=== PATIENT | male | born 1950 | race Caucasian/White ===

== ENCOUNTER 2018-02-03 10:23 | Emergency (ER) | payer MEDICARE, OTHER ==
[2018-02-03] MEDS ORDERED: NS 0.9% 1000 ML* 1,000 ML IV ONE (10:26)
--- NOTE | 2018-02-03 10:43 | RAD ---
INDICATION: Acute neurologic changes COMPARISON: None. TECHNIQUE: Contiguous axial sections of the brain were obtained from the skull base to the vertex without contrast. FINDINGS: Image quality is limited by streak artifact from motion. The ventricles, cisterns and sulci are within normal limits. At the right caudate head nucleus there is a 4 mm focus of hypoattenuation which could be an age indeterminant lacunar infarction. Otherwise the figueroa-white matter differentiation is adequately maintained and there is no sulcal effacement. No significant focal abnormality or mass effect is present. There is no evidence for intracranial hemorrhage. No significant focal osseous abnormality is present. There is opacification of the visualized portion of the left axillary sinus and moderate mucosal thickening of the bilateral anterior ethmoid air cells. There is trace mastoid air cell effusion at the dependent-most mastoid air cells. IMPRESSION: 1. Evaluation is limited by motion streak artifact. 2 series of images were acquired both with varying degrees of streak artifact. 2. Age indeterminant 4 mm lacunar infarction at the right caudate head nucleus. 3. Otherwise no definite CT evidence of acute intracranial abnormality including acute intracranial bleed. 4. Paranasal sinus mucosal disease as described above and trace left mastoid air cell effusion. Findings as well as image quality limitations were discussed with Dr. Gordon at 1038 hours on February 03, 2018.
[2018-02-03] MEDS ORDERED: Iodixanol* (CONTRAST) 320 MG/ML 100 ML SDV IV ONE (10:44)
[2018-02-03 11:05] LABS: ABS Basophils 0.1 10^3/ul (0-0.2); ABS Eosinophils 0.3 10^3/ul (0-0.6); ABS Lymphocytes 1.8 10^3/ul (1.0-4.8); ABS Monocytes 0.7 10^3/ul (0-0.8); ABS Neutrophils 9.1 10^3/ul (1.5-7.7); ABS Nucleated RBC 0 10^3/ul; Eosinophil % 2.6 % (0-6); Hematocrit 40 % (42-52); Hemoglobin 12.7 g/dl (14.0-18.0); Lymphocyte % 14.9 % (25-47); Mean Corpuscular HGB Conc 31 g/dl (31-36); Mean Corpuscular Hemoglobin 26 pg (27-31); Mean Corpuscular Volume 81 fL (80-94); Nucleated Red Blood Cells % 0; Platelet Count 355 10^3/ul (150-450); Red Blood Count 4.95 10^6/ul (4.0-5.4); Red Cell Distribution Width 16 % (10.5-15); White Blood Count 11.9 10^3/ul (3.5-10.8)
[2018-02-03] MEDS ORDERED: Alteplase* 100 MG VIAL ONE (11:10)
[2018-02-03 11:13] LABS: INR 0.93 (0.77-1.02)
[2018-02-03] MEDS ORDERED: Alteplase* 100 MG VIAL IV ONE ×2 (11:15)
--- NOTE | 2018-02-03 11:19 | RAD ---
CPT II: CPT II Codes: 3100F INDICATION: Acute onset confusion COMPARISON: Same day noncontrast CT of the brain limited by motion artifact. TECHNIQUE: A CT angiogram of the head and neck was performed with 80 cc of Visipaque 320. Contiguous axial sections were obtained from the thoracic inlet through the [place]. Images were reconstructed in the sagittal, coronal planes and in a 3-D volume rendered format. The distal cervical internal carotid artery diameter is used as the denominater for stenosis measurement. CTA NECK: The common and internal carotid arteries are patent without hemodynamically significant stenosis. Right: Below the carotid bifurcation the common carotid artery measures 8 mm in short axis diameter. At the carotid bulb there is coarse calcification narrowing the lumen to 2 mm in diameter. This corresponds to at least 75% degree stenosis. Left: Below the carotid bifurcation the common carotid artery measures 6 mm in short axis diameter. There is coarse atherosclerotic calcification at the carotid bulb narrowing the lumen to less than 2 mm in diameter. This corresponds to at least 66% degree stenosis. The vertebral arteries are patent without gross abnormality. CTA of the brain: The internal carotid, anterior and middle cerebral arteries appear are patent without high grade stenosis or occlusion. There is a relative reduction in filling of the arteries along the distal lateral margin of the left frontal lobe relative to the right including the pericallosal branch arteries. The vertebral, basilar and posterior cerebral arteries appear patent without high grade stenosis or occlusion. The [place] of [place] is complete with bilateral posterior communicating arteries identified. No focal luminal filling defect, aneurysm or vascular malformation is seen. NON-ARTERIAL FINDINGS: There is complete opacification of the left maxillary sinus and left anterior ethmoid air cells. There is moderate mucosal thickening of the right anterior ethmoid air cells. There is partial opacification of the right sphenoid sinus. IMPRESSION: 1. DUE TO Coarsely calcified atherosclerosis of the bilateral carotid bulbs there is high-grade stenosis measuring approximately 75% on the right and 66% on the left. The coarse calcification somewhat obscures the image quality and correlation can be made to carotid duplex sonography if it will influence clinical management. 2. There is no large vessel filling defect of the arteries of the head or neck. There is relative reduction of filling overlying the region supplied by the left pericallosal artery in addition to overall decreased arterial filling overlying the left frontal lobe relative to the right. If there is clinical evidence of acute stroke objective evidence can be obtained with MRI of the brain.
[2018-02-03 11:25] LABS: EGFR Non-African American 104.9 (>60)
--- NOTE | 2018-02-03 12:42 | RAD ---
INDICATION: Acute neurologic changes COMPARISON: None. TECHNIQUE: Single AP portable view of the chest was obtained. FINDINGS: Image quality is compromised due to the relative inferiority of a portable chest x-ray. The heart and mediastinum exhibit normal size and contour. The lungs are grossly clear. A small degree of blunting at the left costophrenic angle could indicate small pleural effusion. Visualized bones are normal for the patient's age. IMPRESSION: A small amount of blunting of the left costophrenic angle could be seen due to small pleural effusion or dependent left lower lobe consolidation.
--- NOTE | 2018-02-03 13:10 | ED ---
Sun Tracey Emily, scribed for Petty Gordon MD on 02/03/18 at 1038 . Neurological HPI - HPI Summary HPI Summary: This patient is a 67 year old M BIBA presenting to [facility] with a chief complaint of R-sided weakness, slurred speech, confusion, right facial droop that began at 0845. The patient reports his last known well time of 0845am. Symptoms aggravated by nothing. Symptoms alleviated by nothing. Pt reports that he is not currently on blood thinners and states no other medications. Per EMS, the patient, feeling unwell, called his neighbors at 0845. His neighbors then called for EMS. Per EMS, the patient was sitting in a chair when the EMS arrived on scene. The patient reports that he fell today, and was unable to get back up. States he did not hit his head. Payton Agee called with ETA 5 mins prior to presentation to ED. Pt examined at charge desk on EMS stretcher and taken directly to CT for CT/CTA. Pt with chronic indwelling cali. Right nephrostomy tube noted later in ED course. Per nephrostomy placed for kidney stones at [facility] by Dr. Antonio Armenta approximately 2 months ago. Pt's is in [place] for rehab for cancer at [facility]. Blood pressure 178/87 HR 71 BPM O2 sat 100 Respiratory rate 23 - History of Current Complaint Stated Complaint: PAYTON AGEE Hx Obtained From: Patient, Family/Food Safety Scientist - , EMS Onset/Duration: Sudden Onset, Started hours ago, Still Present Timing: Constant Onset Severity: Severe Current Severity: Moderate Neurological Deficit Location: Facial - right facial droop, aphasia, RUE Character: Motor Weakness - right arm, Impaired Speech, Confusion, Other: - aphasia, dysarthria Aggravating: Nothing Alleviating: Nothing Associated Signs and Symptoms: Positive: Confusion, Impaired Speech TPA Considered: Yes - per consult Dr. Holman, TPA candidate, TPA given - Allergy/Home Medications Allergies/Adverse Reactions: Allergies Allergy/AdvReac Type Severity Reaction Status Date / Time No Known Allergies Allergy Verified 01/31/13 11:06 Home Medications: Home Medications NK [No Home Medications Reported] 02/03/18 [History Confirmed 02/03/18] PMH/Surg Hx/FS Hx/Imm Hx Previously Healthy: No - kidney stones with cali and nephrostomy tube Endocrine/Hematology History: Denies: Hx Anticoagulant Therapy, Hx Diabetes, Hx Thyroid Disease Cardiovascular History: Denies: Hx Hypertension, Hx Pacemaker/ICD Respiratory History: Denies: Hx Asthma, Hx Chronic Obstructive Pulmonary Disease (COPD) History: Reports: Hx Kidney Stones Denies: Hx Renal Disease Neurological History: Denies: Hx Seizures Psychiatric History: Denies: Hx Substance Abuse - Surgical History Surgery Procedure, Year, and Place: Nephrostomy, right, placed approx 2 months ago at [facility] per Hx Anesthesia Reactions: No Infectious Disease History: No Infectious Disease History: Denies: Hx Hepatitis, Hx Human Immunodeficiency Virus (HIV) - Family History Known Family History: Positive: Hypertension - Social History Occupation: Retired Lives: Alone - is in rehab for cancer in [facility] [place] Alcohol Use: None Hx Substance Use: No Substance Use Type: Reports: None Hx Tobacco Use: Yes - Unknown Smoking Status (MU): Never Smoked Tobacco Review of Systems Constitutional: Negative Eyes: Negative ENT: Negative Cardiovascular: Negative Respiratory: Negative Gastrointestinal: Negative Positive: other - cali and right nephrostomy Musculoskeletal: Negative Skin: Negative Neurological: Other - Positive confusion Positive: Weakness - R-sided, arm and right facial droop , Slurred Speech Psychological: Normal All Other Systems Reviewed And Are Negative: Yes Physical Exam - Summary Physical Exam Summary: Appearance: chronically ill appearing, no pain distress, obese, poor dentition Skin: Warm, color reflects adequate perfusion, dry Head: R facial droop, atraumatic Eyes: Conjunctiva clear, PERRL, EOMI, no nystagmus ENT: mucous membranes moist, poor dentition, multiple missing teeth Neck: Supple, no nodes, no JVD, no bruits Respiratory: Lungs clear, normal breath sounds, no respiratory distress Cardio: RRR, No murmur, pulses normal, brisk capillary refill Abdomen: Soft, nontender, indwelling cali with cloudy foul smelling urine, right nephrostomy with cloudy urine Bowel sounds: Present Musculoskeletal: no calf tenderness, no edema. Psychological: Normal Neuro: A&O x3, R facial droop, remaining cranial nerves intact, R arm weakness, sensation intact, ataxia R arm, GCS 14, NIH 5 Triage Information Reviewed: Yes Vital Signs On Initial Exam: Initial Vitals Temp Pulse Resp BP Pulse Ox 97.5 F 73 23 178/87 95 02/03/18 10:43 06/09/18 10:43 02/03/18 10:43 02/03/18 10:43 02/03/18 10:43 Vital Signs Reviewed: Yes - Ashley Coma Scale Best Eye Response: 4 - Spontaneous Best Motor Response: 6 - Obeys Commands Best Verbal Response: 4 - Confused Coma Scale Total: 14 Diagnostics - Vital Signs Vital Signs Temp Pulse Resp BP Pulse Ox 02/03/18 12:28 57 17 178/76 98 02/03/18 12:18 59 18 169/77 100 02/03/18 12:08 58 26 172/76 98 02/03/18 12:01 59 21 100 02/03/18 11:59 60 24 179/77 98 02/03/18 11:32 72 16 157/75 96 02/03/18 11:23 95 02/03/18 11:22 65 23 162/83 96 02/03/18 11:01 67 21 165/96 96 02/03/18 11:00 74 22 95 02/03/18 10:43 97.5 F 68 24 178/87 96 - Laboratory Lab Results: Lab Results 02/03/18 02/03/18 02/03/18 Range/Units 10:47 10:53 10:53 WBC 11.9 H (3.5-10.8) 10^3/ul RBC 4.95 (4.0-5.4) 10^6/ul Hgb 12.7 L (14.0-18.0) g/dl Hct 40 L (42-52) % MCV 81 (80-94) fL MCH 26 L (27-31) pg MCHC 31 (31-36) g/dl RDW 16 H (10.5-15) % Plt Count 355 (150-450) 10^3/ul MPV 7.0 L (7.4-10.4) um3 Neut % (Auto) 75.8 (38-83) % Lymph % (Auto) 14.9 L (25-47) % [place] % (Auto) 6.1 (0-7) % Eos % (Auto) 2.6 (0-6) % Baso % (Auto) 0.6 (0-2) % Absolute Neuts (auto) 9.1 H (1.5-7.7) 10^3/ul Absolute Lymphs (auto) 1.8 (1.0-4.8) 10^3/ul Absolute Monos (auto) 0.7 (0-0.8) 10^3/ul Absolute Eos (auto) 0.3 (0-0.6) 10^3/ul Absolute Basos (auto) 0.1 (0-0.2) 10^3/ul Absolute Nucleated RBC 0 10^3/ul Nucleated RBC % 0 INR (Anticoag Therapy) 0.93 (0.77-1.02) APTT 32.2 (26.0-36.3) seconds Sodium (139-145) mmol/L Potassium (3.5-5.0) mmol/L Chloride (101-111) mmol/L Carbon Dioxide (22-32) mmol/L Anion Gap (2-11) mmol/L BUN (6-24) mg/dL Creatinine (0.67-1.17) mg/dL Est GFR ( Amer) (>60) Est GFR (Non-Af Amer) (>60) BUN/Creatinine Ratio (8-20) Glucose (70-100) mg/dL Lactic Acid (0.5-2.0) mmol/L Calcium (8.6-10.3) mg/dL Total Bilirubin (0.2-1.0) mg/dL AST (13-39) U/L ALT (7-52) U/L Alkaline Phosphatase (34-104) U/L Troponin I (<0.04) ng/mL Total Protein (6.4-8.9) g/dL Albumin (3.2-5.2) g/dL Globulin (2-4) g/dL Albumin/Globulin Ratio (1-3) Triglycerides mg/dL Cholesterol mg/dL LDL Cholesterol mg/dL HDL Cholesterol mg/dL Blood Type A Negative Antibody Screen Negative 02/03/18 02/03/18 Range/Units 10:53 10:53 WBC (3.5-10.8) 10^3/ul RBC (4.0-5.4) 10^6/ul Hgb (14.0-18.0) g/dl Hct (42-52) % MCV (80-94) fL MCH (27-31) pg MCHC (31-36) g/dl RDW (10.5-15) % Plt Count (150-450) 10^3/ul MPV (7.4-10.4) um3 Neut % (Auto) (38-83) % Lymph % (Auto) (25-47) % [place] % (Auto) (0-7) % Eos % (Auto) (0-6) % Baso % (Auto) (0-2) % Absolute Neuts (auto) (1.5-7.7) 10^3/ul Absolute Lymphs (auto) (1.0-4.8) 10^3/ul Absolute Monos (auto) (0-0.8) 10^3/ul Absolute Eos (auto) (0-0.6) 10^3/ul Absolute Basos (auto) (0-0.2) 10^3/ul Absolute Nucleated RBC 10^3/ul Nucleated RBC % INR (Anticoag Therapy) (0.77-1.02) APTT (26.0-36.3) seconds Sodium 137 L (139-145) mmol/L Potassium 4.0 (3.5-5.0) mmol/L Chloride 103 (101-111) mmol/L Carbon Dioxide 26 (22-32) mmol/L Anion Gap 8 (2-11) mmol/L BUN 19 (6-24) mg/dL Creatinine 0.74 (0.67-1.17) mg/dL Est GFR ( Amer) 134.9 (>60) Est GFR (Non-Af Amer) 104.9 (>60) BUN/Creatinine Ratio 25.7 H (8-20) Glucose 96 (70-100) mg/dL Lactic Acid 2.1 H* (0.5-2.0) mmol/L Calcium 9.6 (8.6-10.3) mg/dL Total Bilirubin 0.40 (0.2-1.0) mg/dL AST 12 L (13-39) U/L ALT 9 (7-52) U/L Alkaline Phosphatase 75 (34-104) U/L Troponin I 0.00 (<0.04) ng/mL Total Protein 7.5 (6.4-8.9) g/dL Albumin 4.0 (3.2-5.2) g/dL Globulin 3.5 (2-4) g/dL Albumin/Globulin Ratio 1.1 (1-3) Triglycerides 184 mg/dL Cholesterol 194 mg/dL LDL Cholesterol 125 mg/dL HDL Cholesterol 32.3 mg/dL Blood Type Antibody Screen Result Diagrams: 02/03/18 10:53 02/03/18 10:53 Lab Statement: Any lab studies that have been ordered have been reviewed, and results considered in the medical decision making process. - Radiology CXR Radiology Interpretation Completed By: Radiologist - CXR reveals, per radiologist, A small amount of blunting of the left costophrenic angle could be seen due to small pleural effusion or dependent left lower lobe consolidation. ED physician has reviewed this radiology report. - CT Brain CT CT Interpretation Completed By: Radiologist - Brain CT reveals, per radiologist , 1. Evaluation is limited by motion streak artifact. 2 series of images were acquired both with varying degrees of streak artifact. 2. Age indeterminant 4 mm lacunar infarction at the right caudate head nucleus. 3. Otherwise no definite CT evidence of acute intracranial abnormality including acute intracranial bleed. 4. Paranasal sinus mucosal disease as described above and trace left mastoid air cell effusion. ED physician has reviewed this radiology report. CTA Head and Neck CT Interpretation Completed By: Radiologist - CTA head and neck reveals, per radiologist, 1. DUE TO Coarsely calcified atherosclerosis of the bilateral carotid bulbs there is high-grade stenosis measuring approximately 75% on the right and 66% on the left. The coarse calcification somewhat obscures the image quality and correlation can be made to carotid duplex sonography if it will influence clinical management. 2. There is no large vessel filling defect of the arteries of the head or neck. There is relative reduction of filling overlying the region supplied by the left pericallosal artery in addition to overall decreased arterial filling overlying the left frontal lobe relative to the right. If there is clinical evidence of acute stroke objective evidence can be obtained with MRI of the brain. ED physician has reviewed this radiology report. - EKG 1113 Cardiac Rate: NL EKG Rhythm: Sinus Rhythm - 64 BPM EKG Interpretation: 1st degree AV block. Nml IVCT. Nml QTc. Nml axis. No acute changes NIH Scale - NIH Scale Level of Consciousness: Alert/Keenly Responsive Ask Patient the Month and His/Her Age: Both Correct Ask Pt to Open/Close Eyes and Electric Serviceman/Release Non-Paretic Hand: Both Correctly Best Gaze (Only Horizontal Eye Movement): Normal Visual Field Testing: No Visual Loss Facial Paresis-Pt to Smile & Close Eyes or Grimace Symmetry: Minor Paralysis Motor Function - Right Arm: Drifts LT 10 seconds Motor Function - Left Arm: No Drift-Holds 10 Seconds Motor Function - Right Leg: No Drift-Holds 10 Seconds Motor Function - Left Leg: No Drift-Holds 10 Seconds Limb Ataxia-Must be out of Proportion to Weakness Present: Present in One Limb Sensory (Use Pinprick to Test Arms/Legs/Trunk/Face): Normal Best Language (Describe Picture, Name Items): Some Loss Dysarthria (Read Several Words): Slurs Some Words Extinction and Inattention: No Abnormality Total Score: 5 Re-Evaluation - Re-Evaluation First Eval Re-Evaluation Time: 12:00 Change: Unchanged Comment: speech improving, cali with hematuria Second Eval Re-Evaluation Time: 12:35 Change: Unchanged Comment: more blood from cali. nephrostomy with no blood, no definite drainage. [facility] Advised of pt's stroke and transfer to [facility]. Course/Dx - Course Course Of Treatment: This patient is a 67 year old M BIBA presenting to [facility] with a chief complaint of R-sided weakness that began at 0845. Pt has confusion and slurred speech. Pt reports that he fell today and was unable to get up. Consult with Dr. Holman (neurology) at 1036. Discussed the plan of care for the patient. Consult with Dr. Kidd (radiology) at 1038. CT results were communicated. Consult with Dr. Holman (neurology) at 1050. Tele-stroke consult initiated. Consult with Dr. Allan (neurology) at 1209. He recommends the patient be transferred to a higher level of care facility due to critical carotid stenosis . Brain CT reveals, per radiologist, 1. Evaluation is limited by motion streak artifact. 2 series of images were acquired both with varying degrees of streak artifact. 2. Age indeterminant 4 mm lacunar infarction at the right caudate head nucleus. CTA head and neck reveals, per radiologist, 1. DUE TO Coarsely calcified atherosclerosis of the bilateral carotid bulbs there is high-grade stenosis measuring approximately 75% on the right and 66% on the left. The coarse calcification somewhat obscures the image quality and correlation can be made to carotid duplex sonography if it will influence clinical management. 2. There is no large vessel filling defect of the arteries of the head or neck. There is relative reduction of filling overlying the region supplied by the left pericallosal artery in addition to overall decreased arterial filling overlying the left frontal lobe relative to the right. The patient will be transferred for further evaluation. The patient is agreeable with this plan. - Differential Dx Differential Diagnoses Neuro: Positive: Cerebrovascular Accident, Hemorrhage, Intracranial Bleed, Other - sepsis - Diagnoses Provider Diagnoses: Stroke, Received intravenous tissue plasminogen activator (tPA) in emergency department, Hematuria, gross, Carotid stenosis, bilateral During the Visit The Following Alert/Code Occurred: Code [place] - Called at 1018, 5 minutes PROJECT COORDINATOR - Physician Notifications Discussed Care Of Patient With: Arely Holman Time Discussed With Above Provider: 10:36 Instructed by Provider To: Transfer - Consult with Dr. Holman (neurology) at 1036. Discussed the plan of care for the patient. Consult with Dr. Kidd ( radiology) at 1038. CT results were communicated. Consult with Dr. Holman ( neurology) at 1050. Tele-stroke consult initiated. Consult with Dr. Ramirez ( marine electronics technician) at 1130. He communicated that this case can be discussed with the hospitalist. Consult with Dr. Cordon, hospitalist, who recommends consult with Dr. Vickers. Consult with Dr. Allan (neurology) at 1209. He recommends the patient be transferred to a higher level of care facility. - Critical Care Time Critical Care Time: 30-74 min - 60 minutes Discharge - Sign-Out/Discharge Documenting (check all that apply): Discharge/Admit/Transfer - Transfer - Discharge Plan Condition: Stable Disposition: TRANS HIGHER LVL OF CARE FAC Referrals: Suha Carroll [Primary Care Provider] - - Billing Disposition and Condition Condition: STABLE Disposition: Trans Higher Lvl of Care Fac The documentation as recorded by the Sun cedeño Emily accurately reflects the service I personally performed and the decisions made by , Petty Gordon MD.
[2018-02-03 13:42] VITALS: BP 164/68
== END 2018-02-03 13:57 | disposition short-term general hospital (02) ==
LOC: ED 10:23
DX: I63.9 Cerebral infarction, unspecified (principal); I65.23 Occlusion and stenosis of bilateral carotid arteries; R41.0 Disorientation, unspecified; R29.810 Facial weakness; R47.81 Slurred speech; G81.91 Hemiplegia, unspecified affecting right dominant side; R29.705 NIHSS score 5; R31.9 Hematuria, unspecified; N20.0 Calculus of kidney; Z93.6 Other artificial openings of urinary tract status
CPT/HCPCS: 36415; 70450; 70496; 70498; 71045; 80053; 80061; 83605; 84484; 85025; 85610; 85730; 86850; 86900; 86901; 93005; 96374; 99284; J2997; Q9967

== ENCOUNTER 2020-02-26 10:23 | Inpatient (IN) ==
[2020-02-26] MEDS ORDERED: NS 0.9% 1000 ml BAG 1,000 ML IV.FLUID IV ONE (10:34)
[2020-02-26] MEDS ORDERED: cefTRIAXone(*) 2 GM ADDV.VIAL 2 GM in NS 0.9% 100 ml BAG 100 ML IVPB ONE (10:42)
[2020-02-26] MEDS ORDERED: Vancomycin(*) 1,000 MG in NS 0.9% 250 ml 250 ML IVPB ONE (11:00)
[2020-02-26 11:11] LABS: ABS Lymphocytes 0.6 10^3/ul (1.0-4.8); ABS Monocytes 0.8 10^3/ul (0-0.8); Eosinophil % 0.1 %; Hematocrit 40 % (42-52); Hemoglobin 13.2 g/dL (14.0-18.0); Lymphocyte % 4.5 %; Mean Corpuscular HGB Conc 33 g/dL (31-36); Mean Corpuscular Hemoglobin 26 pg (27-31); Mean Corpuscular Volume 78 fL (80-94); Mean Platelet Volume 8.4 fL (7.4-10.4); Nucleated Red Blood Cells % 0.1; Platelet Count 396 10^3/uL (150-450); Red Blood Count 5.15 10^6 /uL (4.18-5.48); Red Cell Distribution Width 18 % (10-15)
[2020-02-26 11:25] LABS: Activated Partial Thrombo Time 28.8 seconds (26.0-38.0); INR 1.17 (0.82-1.09)
[2020-02-26 11:28] LABS: ALT 17 U/L (7-52); AST 21 U/L (13-39); Albumin 3.3 g/dL (3.2-5.2); Albumin/Globulin Ratio 0.7 (1-3); Alkaline Phosphatase 82 U/L (34-104); Anion Gap 13 mmol/L (2-11); BUN/Creatinine Ratio 32.5 (8-20); Blood Urea Nitrogen 40 mg/dL (6-24); C Reactive Protein 144.36 mg/L (<8.01); CO2 Carbon Dioxide 18 mmol/L (22-32); Calcium 9.4 mg/dL (8.6-10.3); Chloride 98 mmol/L (101-111); EGFR African American 70.2 (>60); Glucose 158 mg/dL (70-100); Potassium 4.3 mmol/L (3.5-5.0); Sodium 129 mmol/L (135-145); Total Protein 8.3 g/dL (6.4-8.9)
[2020-02-26 11:30] LABS: Troponin I 0.01 ng/mL (<0.03)
[2020-02-26] MEDS ORDERED: Vancomycin(*) 1,000 MG BAG/ADDV ONE (12:09)
[2020-02-26] MEDS ORDERED: cefTRIAXone(*) 2 GM ADDV.VIAL ONE (12:10)
[2020-02-26] MEDS ORDERED: Ondansetron 4 mg VIAL 2 MG/ML 2 ml VIAL IV PRN (12:36)
[2020-02-26 12:55] LABS: Erythrocyte Sed Rate 57 mm/Hr (0-19)
[2020-02-26] MEDS ORDERED: Vancomycin per Pharmacy 1 EA NOTE FOLLOW UP SCH (13:00)
[2020-02-26] MEDS ORDERED: Albuterol/Ipratropium NEB.SOL (2.5/0.5 MG) 3 ML NEB.SOLN INH PRN (13:06)
[2020-02-26 13:12] LABS: Cholesterol 134 mg/dL; HDL Cholesterol 28.3 mg/dL; LDL Cholesterol 85 mg/dL; Magnesium 2.1 mg/dL (1.9-2.7); Triglycerides 104 mg/dL
[2020-02-26 13:21] LABS: Total Iron Binding Capacity 241 mcg/dL (250-450); Transferrin 172 mg/dL (203-362)
[2020-02-26 13:35] LABS: TSH (Thyroid Stimulating Horm) 3.63 mcIU/mL (0.34-5.60)
[2020-02-26 13:41] LABS: Ferritin 91.9 ng/mL (24-336)
[2020-02-26] MEDS: NS 0.9% 1000 ml BAG 1,000 ML IV SCH ×2 (14:33→20:29)
[2020-02-26] MEDS: metroNIDAZOLE IV 500 MG/100ML 500 MG/100 ML BAG IVPB SCH ×2 (15:52→23:36)
[2020-02-26 16:09] LABS: Urine Appearance Turbid; Urine Bilirubin Negative (Negative); Urine Blood 2+ (Negative); Urine Color Amber; Urine Glucose Negative (Negative); Urine Ketones 1+ (Negative); Urine Nitrite Positive (Negative); Urine Protein 1+(30 mg/dL) (Negative); Urine Urobilinogen Negative (Negative)
[2020-02-26 16:13] LABS: Urine Bacteria 3+ (Absent); Urine Red Blood Cell 3+(>10/hpf) (Absent); Urine Red Blood Cell Casts Present (Absent); Urine White Blood Cell 3+(>20/hpf) (Absent)
[2020-02-26] MEDS ORDERED: ceFAZolin 2 GM PREMIX in ORs 2 GM/50 ML BAG ONE (16:26)
[2020-02-26] MEDS ORDERED: Naloxone 0.4 mg VIAL 0.4 mg/ml 1 ml VIAL IV PRN (16:39)
[2020-02-26] MEDS ORDERED: HYDROmorphone 1 MG/1 ML SYRINGE IV PRN (16:39)
[2020-02-26] MEDS ORDERED: fentaNYL 100 mcg/2 ml 50 MCG/ML VIAL ONE ×2 (17:12→17:27)
[2020-02-26] MEDS ORDERED: Ondansetron 4 mg VIAL 2 MG/ML 2 ml VIAL ONE (17:57)
[2020-02-26] MEDS ORDERED: Etomidate 20 mg/10 ml 2 MG/ML 10 ml VIAL ONE (17:58)
[2020-02-26] MEDS ORDERED: Dexamethasone IV 4 MG/ML VIAL 1 ml VIAL ONE (17:58)
[2020-02-26] MEDS ORDERED: Lidocaine 2% PF 5 ML VIAL ONE (17:58)
[2020-02-26] MEDS ORDERED: Propofol 10 MG/ML 20 ML BTL ONE (17:58)
[2020-02-26] MEDS ORDERED: Morphine 2 MG/ML SYRINGE IV PRN (20:06)
[2020-02-26] MEDS: Vancomycin(*) 1,250 MG IV Q12H IVPB SCH (22:16)
[2020-02-27] MEDS: metroNIDAZOLE IV 500 MG/100ML 500 MG/100 ML BAG IVPB SCH ×4 (00:13→17:12)
[2020-02-27 04:52] LABS: ABS Lymphocytes 0.8 10^3/ul (1.0-4.8); ABS Monocytes 0.7 10^3/ul (0-0.8); Eosinophil % 0.1 %; Hematocrit 33 % (42-52); Hemoglobin 10.6 g/dL (14.0-18.0); Lymphocyte % 6.9 %; Mean Corpuscular HGB Conc 32 g/dL (31-36); Mean Corpuscular Hemoglobin 26 pg (27-31); Mean Corpuscular Volume 79 fL (80-94); Platelet Count 322 10^3/uL (150-450); Red Blood Count 4.14 10^6 /uL (4.18-5.48); Red Cell Distribution Width 17 % (10-15); White Blood Count 11.4 10^3/uL (3.5-10.8)
[2020-02-27 05:06] LABS: Anion Gap 5 mmol/L (2-11); BUN/Creatinine Ratio 29.2 (8-20); Blood Urea Nitrogen 26 mg/dL (6-24); CO2 Carbon Dioxide 21 mmol/L (22-32); Calcium 8.1 mg/dL (8.6-10.3); Chloride 108 mmol/L (101-111); EGFR Non-African American 84.3 (>60); Glucose 120 mg/dL (70-100); Potassium 3.8 mmol/L (3.5-5.0); Sodium 134 mmol/L (135-145)
[2020-02-27] MEDS: Heparin 5000 UNITS/ML VIAL(*) 1 ml vial SUBCUT SCH ×2 (08:37→17:13)
[2020-02-27] MEDS: NS 0.9% 1000 ml BAG 1,000 ML IV SCH (09:13)
[2020-02-27] MEDS: Vancomycin(*) 1,250 MG IV Q12H IVPB SCH (10:09)
[2020-02-27] MEDS ORDERED: Dextrose 50% Syringe 50 ml 25 GM/50 ML SYRINGE IV PUSH PRN (10:40)
[2020-02-27] MEDS: cefTRIAXone(*) 2 GM ADDV.VIAL 2 GM in NS 0.9% 100 ml BAG 100 ML IV SCH (12:07)
[2020-02-27] MEDS: Insulin LISPRO 100 units/ml(*) SUBCUT SCH ×3 (12:11→21:31)
[2020-02-27] MEDS ORDERED: Iohexol 350 (CONTRAST) 500 ML MDV IV ONE (14:11)
[2020-02-27] MEDS ORDERED: LORazepam 1 mg TAB (*) PO SCH (16:15)
[2020-02-28] MEDS: metroNIDAZOLE IV 500 MG/100ML 500 MG/100 ML BAG IVPB SCH ×6 (00:15→20:47)
[2020-02-28] MEDS: Heparin 5000 UNITS/ML VIAL(*) 1 ml vial SUBCUT SCH ×3 (01:19→17:23)
[2020-02-28 05:27] LABS: ABS Basophils 0.1 10^3/ul (0-0.2); ABS Eosinophils 0.3 10^3/ul (0-0.6); ABS Lymphocytes 1.7 10^3/ul (1.0-4.8); ABS Monocytes 0.8 10^3/ul (0-0.8); Eosinophil % 2.7 %; Hematocrit 34 % (42-52); Hemoglobin 10.8 g/dL (14.0-18.0); Mean Corpuscular HGB Conc 32 g/dL (31-36); Mean Corpuscular Hemoglobin 26 pg (27-31); Mean Corpuscular Volume 80 fL (80-94); Mean Platelet Volume 7.8 fL (7.4-10.4); Nucleated Red Blood Cells % 0.1; Platelet Count 356 10^3/uL (150-450); Red Blood Count 4.23 10^6 /uL (4.18-5.48); Red Cell Distribution Width 18 % (10-15); White Blood Count 9.2 10^3/uL (3.5-10.8)
[2020-02-28 05:43] LABS: BUN/Creatinine Ratio 23.3 (8-20); C Reactive Protein 87.17 mg/L (<8.01); Calcium 8.3 mg/dL (8.6-10.3); EGFR African American 106.1 (>60); EGFR Non-African American 87.7 (>60); Potassium 3.9 mmol/L (3.5-5.0)
[2020-02-28] MEDS ORDERED: Lidocaine 1% VIAL 10 MG/ML VIAL ONE (08:21)
[2020-02-28] MEDS ORDERED: Iohexol 350 (CONTRAST) 200 ML MDV IV ONE ×2 (08:22)
[2020-02-28] MEDS ORDERED: Heparin 2 UNITS/ML 1000 mls 2,000 ML IV ONE (08:22)
[2020-02-28] MEDS ORDERED: fentaNYL 100 mcg/2 ml 50 MCG/ML VIAL ONE ×2 (08:44→09:18)
[2020-02-28] MEDS ORDERED: Midazolam 5 mg/5 ml VIAL 1 mg/ml 5 ml VIAL (5 mg) ONE (08:44)
[2020-02-28] MEDS ORDERED: Iodixanol 320 (CONTRAST) 100 ML SDV ONE (08:52)
[2020-02-28] MEDS ORDERED: Vancomycin Trough Check NOTE FOLLOW UP ONE (09:30)
[2020-02-28] MEDS ORDERED: Heparin 1,000 UNIT/ML CATH LAB 1,000 10 ml (10,000 UNITS) IV ONE (09:33)
[2020-02-28] MEDS ORDERED: Heparin 2 UNITS/ML 1000 mls 1,000 ML IV ONE (09:50)
[2020-02-28] MEDS: Insulin LISPRO 100 units/ml(*) SUBCUT SCH ×4 (11:41→20:43)
[2020-02-28] MEDS: cefTRIAXone(*) 2 GM ADDV.VIAL 2 GM in NS 0.9% 100 ml BAG 100 ML IV SCH (12:36)
[2020-02-29] MEDS: Heparin 5000 UNITS/ML VIAL(*) 1 ml vial SUBCUT SCH ×3 (01:37→16:58)
[2020-02-29] MEDS: metroNIDAZOLE IV 500 MG/100ML 500 MG/100 ML BAG IVPB SCH ×3 (04:22→21:12)
[2020-02-29 05:34] LABS: ABS Basophils 0.1 10^3/ul (0-0.2); ABS Eosinophils 0.3 10^3/ul (0-0.6); ABS Lymphocytes 2.1 10^3/ul (1.0-4.8); ABS Monocytes 0.8 10^3/ul (0-0.8); Eosinophil % 2.8 %; Hematocrit 33 % (42-52); Hemoglobin 10.9 g/dL (14.0-18.0); Lymphocyte % 21.6 %; Mean Corpuscular HGB Conc 33 g/dL (31-36); Mean Corpuscular Hemoglobin 26 pg (27-31); Mean Corpuscular Volume 79 fL (80-94); Platelet Count 340 10^3/uL (150-450); Red Blood Count 4.15 10^6 /uL (4.18-5.48); Red Cell Distribution Width 18 % (10-15); White Blood Count 9.9 10^3/uL (3.5-10.8)
[2020-02-29 05:47] LABS: BUN/Creatinine Ratio 15.7 (8-20); C Reactive Protein 57.59 mg/L (<8.01); Calcium 8.5 mg/dL (8.6-10.3); EGFR African American 134.5 (>60); EGFR Non-African American 111.2 (>60)
[2020-02-29] MEDS: Insulin LISPRO 100 units/ml(*) SUBCUT SCH ×4 (07:35→21:10)
[2020-02-29] MEDS: cefTRIAXone(*) 2 GM ADDV.VIAL 2 GM in NS 0.9% 100 ml BAG 100 ML IV SCH (12:15)
[2020-03-01] MEDS: Heparin 5000 UNITS/ML VIAL(*) 1 ml vial SUBCUT SCH ×3 (01:05→17:28)
[2020-03-01] MEDS: metroNIDAZOLE IV 500 MG/100ML 500 MG/100 ML BAG IVPB SCH ×3 (04:17→20:57)
[2020-03-01 06:28] LABS: ABS Basophils 0.1 10^3/ul (0-0.2); ABS Eosinophils 0.3 10^3/ul (0-0.6); ABS Lymphocytes 2.3 10^3/ul (1.0-4.8); ABS Monocytes 0.9 10^3/ul (0-0.8); Eosinophil % 3.4 %; Hematocrit 32 % (42-52); Hemoglobin 10.5 g/dL (14.0-18.0); Lymphocyte % 22.2 %; Mean Corpuscular HGB Conc 33 g/dL (31-36); Mean Corpuscular Hemoglobin 26 pg (27-31); Mean Corpuscular Volume 79 fL (80-94); Mean Platelet Volume 7.8 fL (7.4-10.4); Platelet Count 346 10^3/uL (150-450); Red Cell Distribution Width 18 % (10-15); White Blood Count 10.3 10^3/uL (3.5-10.8)
[2020-03-01 06:46] LABS: BUN/Creatinine Ratio 16.7 (8-20); C Reactive Protein 51.49 mg/L (<8.01); Calcium 8.4 mg/dL (8.6-10.3); Potassium 3.7 mmol/L (3.5-5.0)
[2020-03-01] MEDS: Insulin LISPRO 100 units/ml(*) SUBCUT SCH ×4 (07:27→20:59)
[2020-03-01] MEDS: Albuterol/Ipratropium NEB.SOL (2.5/0.5 MG) 3 ML NEB.SOLN INH SCH ×4 (11:39→23:10)
[2020-03-01] MEDS: cefTRIAXone(*) 2 GM ADDV.VIAL 2 GM in NS 0.9% 100 ml BAG 100 ML IV SCH (11:39)
[2020-03-02] MEDS: Heparin 5000 UNITS/ML VIAL(*) 1 ml vial SUBCUT SCH ×3 (00:19→17:39)
[2020-03-02] MEDS: Albuterol/Ipratropium NEB.SOL (2.5/0.5 MG) 3 ML NEB.SOLN INH SCH ×2 (03:44→08:24)
[2020-03-02] MEDS: metroNIDAZOLE IV 500 MG/100ML 500 MG/100 ML BAG IVPB SCH ×3 (04:01→20:17)
[2020-03-02 04:49] LABS: Hematocrit 31 % (42-52); Hemoglobin 10.3 g/dL (14.0-18.0); Mean Corpuscular HGB Conc 33 g/dL (31-36); Mean Corpuscular Hemoglobin 26 pg (27-31); Mean Corpuscular Volume 79 fL (80-94); Mean Platelet Volume 7.6 fL (7.4-10.4); Platelet Count 334 10^3/uL (150-450); Red Blood Count 3.99 10^6 /uL (4.18-5.48); Red Cell Distribution Width 18 % (10-15); White Blood Count 12.1 10^3/uL (3.5-10.8)
[2020-03-02 05:04] LABS: BUN/Creatinine Ratio 16.2 (8-20); Calcium 8.3 mg/dL (8.6-10.3); EGFR African American 126.2 (>60); EGFR Non-African American 104.3 (>60); Potassium 3.8 mmol/L (3.5-5.0)
[2020-03-02] MEDS: Insulin LISPRO 100 units/ml(*) SUBCUT SCH ×4 (07:20→20:41)
[2020-03-02 08:31] LABS: ABS Basophils 0.1 10^3/ul (0-0.2); ABS Eosinophils 0.3 10^3/ul (0-0.6); ABS Lymphocytes 2.4 10^3/ul (1.0-4.8); ABS Monocytes 0.9 10^3/ul (0-0.8); Eosinophil % 2.4 %; Lymphocyte % 19.9 %; Nucleated Red Blood Cells % 0.1
[2020-03-02] MEDS ORDERED: Albuterol/Ipratropium NEB.SOL (2.5/0.5 MG) 3 ML NEB.SOLN INH PRN (08:31)
[2020-03-02 08:32] LABS: Microcytosis 1+
[2020-03-02] MEDS ORDERED: Albuterol/Ipratropium NEB.SOL (2.5/0.5 MG) 3 ML NEB.SOLN INH SCH (11:00)
[2020-03-02] MEDS ORDERED: Diazepam INJ CARPUJECT 5 MG/ML IV ONE ×2 (11:24→14:27)
[2020-03-02] MEDS: cefTRIAXone(*) 2 GM ADDV.VIAL 2 GM in NS 0.9% 100 ml BAG 100 ML IV SCH (12:33)
[2020-03-03] MEDS: Heparin 5000 UNITS/ML VIAL(*) 1 ml vial SUBCUT SCH ×2 (00:56→08:29)
[2020-03-03] MEDS: metroNIDAZOLE IV 500 MG/100ML 500 MG/100 ML BAG IVPB SCH (04:30)
[2020-03-03 05:55] LABS: ABS Basophils 0.1 10^3/ul (0-0.2); ABS Eosinophils 0.3 10^3/ul (0-0.6); ABS Lymphocytes 2.4 10^3/ul (1.0-4.8); ABS Monocytes 0.7 10^3/ul (0-0.8); Eosinophil % 3.5 %; Hematocrit 33 % (42-52); Hemoglobin 10.9 g/dL (14.0-18.0); Lymphocyte % 24.7 %; Mean Corpuscular HGB Conc 33 g/dL (31-36); Mean Corpuscular Hemoglobin 26 pg (27-31); Mean Corpuscular Volume 78 fL (80-94); Mean Platelet Volume 7.6 fL (7.4-10.4); Nucleated Red Blood Cells % 0.1; Platelet Count 359 10^3/uL (150-450); Red Blood Count 4.24 10^6 /uL (4.18-5.48); Red Cell Distribution Width 18 % (10-15); White Blood Count 9.7 10^3/uL (3.5-10.8)
[2020-03-03 06:13] LABS: BUN/Creatinine Ratio 13.8 (8-20); C Reactive Protein 47.75 mg/L (<8.01); Calcium 8.6 mg/dL (8.6-10.3); EGFR African American 146.5 (>60); EGFR Non-African American 121.1 (>60); Potassium 3.7 mmol/L (3.5-5.0)
[2020-03-03] MEDS: Insulin LISPRO 100 units/ml(*) SUBCUT SCH ×2 (07:00→12:38)
[2020-03-03 11:21] VITALS: BP 143/64
== END 2020-03-03 14:15 | DRG 854 ==
LOC: ED 10:23 → SSU 12:36
PROVIDERS: ADMIT Internal Medicine; ATTEND Internal Medicine